=== PATIENT | male | born 1950 | race Hispanic/Latino ===

== ENCOUNTER → 2018-07-01 | Day surgery (SDC) | payer OTHER ==
[2018-06-17 10:07] LABS: BASOPHILS # (AUTO) 0.1 (0.0-0.1); BASOPHILS % 0.8 % (0.0-1.0); EOSINOPHILS # (AUTO) 0.3 (0.0-0.4); EOSINOPHILS % 4.2 % (0.0-6.0); HEMATOCRIT 42.4 % (38.2-49.6); HEMOGLOBIN 14.7 g/dL (14.0-18.0); LYMPHOCYTES # (AUTO) 2.3 (1.0-3.2); MEAN CORPUSCULAR HEMOGLOBIN 31.1 pg (28-32); MEAN CORPUSCULAR HGB CONC 34.7 g/dL (31-35); MEAN CORPUSCULAR VOLUME 89.6 fL (81-99); MONOCYTES # (AUTO) 0.5 (0.2-0.8); MONOCYTES % 8.9 % (4.4-11.3); NEUTROPHILS # (AUTO) 2.8 (2.1-6.9); NEUTROPHILS % 46.8 % (38.7-80.0); PLATELET COUNT 194 x10e3/uL (140-360); RED BLOOD COUNT 4.73 x10e6/uL (4.3-5.7); RED CELL DISTRIBUTION WIDTH 13.6 % (11.7-14.4)
[2018-06-17 10:25] LABS: ALANINE AMINOTRANSFERASE 25 IU/L (0-55); ALBUMIN 4.2 g/dL (3.5-5.0); ALBUMIN/GLOBULIN RATIO 1.3 (0.8-2.0); ALKALINE PHOSPHATASE 61 IU/L (40-150); ANION GAP 14.7 mmol/L (8-16); BLOOD UREA NITROGEN 17 mg/dL (7-26); BUN/CREATININE RATIO 17 (6-25); CARBON DIOXIDE 24 mmol/L (22-29); CHLORIDE 105 mmol/L (98-107); CREATININE, SERUM 1.02 mg/dL (0.72-1.25); EST GLOMERULAR FILTRATION RATE > 60 ML/MIN (60-); GLUCOSE 152 mg/dL (74-118); POTASSIUM 4.7 mmol/L (3.5-5.1); SODIUM 139 mmol/L (136-145)
--- NOTE | 2018-06-17 12:37 | Diagnostic Imaging Report ---
PROCEDURE: Frontal and lateral views of the chest. COMPARISON: None. INDICATIONS: PRE OPERATIVE CHEST X-RAY FOR LAP RANJIT FINDINGS: Lines/tubes: None. Lungs: The lungs are well inflated and clear. There is no evidence of pneumonia or pulmonary edema. Pleura: There is no pleural effusion or pneumothorax. Heart and mediastinum: The cardiomediastinal silhouette is unremarkable. Bones: No acute bony abnormality. IMPRESSION: No acute radiographic abnormality. Dictated by: SONU KILGORE M.D. on 06/17/2018 at 11:29 Electronically approved by: SONU KILGORE M.D. on 06/17/2018 at 11:29
[~2018-07-01] MED LIST: ACETAMINOPHEN 1000 MG/100 ML IV ONE; ACTOS15 MG PO; BUPIVACAINE 0.25%/EPI 30ML SDV INJ ONE; DEXAMETHASONE SOD PHOS INJ 4 MG/ML VIAL ONE; FENTANYL CITRATE/PF 100MCG/2 ML INJ ONE; GLIPIZIDE ER5 MG PO; GLYCOPYRROLATE INJ 1MG/ 5 ML SYR ONE; LIDOCAINE HCL 2% LOCAL INJ 5 ML SDV VIAL INJ ONE; LISINOPRIL10 MG PO; LOVASTATIN40 MG PO; METFORMIN HCL500 MG PO; MIDAZOLAM HCL 2 MG/2 ML VIAL ONE; MORPHINE SULFATE INJ 10 MG/ML ONE; NEOSTIGMINE 5 MG/5ML SYR ONE; OMEPRAZOLE40 MG PO; ONDANSETRON HCL INJ 2 MG/ML VIAL ONE; PROPOFOL IV EMULSION 10 MG/ML 20 ML VIAL ONE; ROCURONIUM BROMIDE 10 MG/ML 5ML VIAL ONE; SEROQUEL25 MG PO; SEVOFLURANE INHAL SOLN 250 ML PEN BTL ONE
--- OUTSIDE RECORDS SUMMARY | 2018-07-01 05:43 | XMS REPORT ---
Author Author [facility] Address Unknown Phone Unavailable Care Team Providers Care Electronic Transaction Implementer Name Role Phone SVITLANA MUNOZ Unavailable Unavailable Problems This patient has no known problems. Allergies, Adverse Reactions, Alerts This patient has no known allergies or adverse reactions. Medications This patient has no known medications. Results Test Description Test Time Test Comments Text Results Atomic Results Result Comments CHEST 2 VIEWS 2018-06-17 11:29:00 [place] [address] Patient Name: THOM ANDRE MR #: [id number] : 1950 Age/Sex: 67/M Req #: [id number] Adm Physician: Ordered by: SVITLANA MUNOZ MD Report #: [id number] Location: OR Room/Bed: Procedure: [id number] DX/CHEST 2 VIEWS Exam Date: 06/17/18 Exam Time: 1000 REPORT STATUS: Signed PROCEDURE: Frontal and lateral views of the chest. COMPARISON: None. INDICATIONS: PRE OPERATIVE CHEST X-RAY FOR LAP RANJIT FINDINGS: Lines/tubes: None. Lungs: The lungs are well inflated and clear. There is no evidence of pneumonia or pulmonary edema. Pleura: There is no pleural effusion or pneumothorax. Heart and mediastinum: The cardiomediastinal silhouette is unremarkable. Bones: No acute bony abnormality. IMPRESSION: No acute radiographic abnormality. Dictated by: SONU KILGORE M.D. on 06/17/2018 at 11:29 Electronically approved by: SONU KILGORE M.D. on 06/17/2018 at 11:29 Dictated By: SONU KILGORE MD [id number] Transcribed By: KT on 06/17/181128 COPY TO: SVITLANA MUNOZ MD
--- NOTE | 2018-07-01 09:13 | Operative Report ---
DATE OF PROCEDURE: July 01, 2018 PREOPERATIVE DIAGNOSIS: Cholelithiasis and chronic cholecystitis. POSTOPERATIVE DIAGNOSIS: Cholelithiasis and chronic cholecystitis. PROCEDURE PERFORMED: Laparoscopic cholecystectomy. ANESTHESIA: General endotracheal. ESTIMATED BLOOD LOSS: Minimal. DRAINS: None. COMPLICATIONS: None. INDICATIONS AND FINDINGS: A 67-year-old diabetic male complains of epigastric pain associated with fatty foods for several months. He was found to have gallstones by ultrasound. No history of jaundice. He had normal liver function tests. INTRAOPERATIVE FINDINGS: Cholelithiasis. Adhesions of omentum to the gallbladder or indicating chronic cholecystitis. There was no ductal dilatation. DESCRIPTION OF PROCEDURE: With the patient lying on the operative table in the supine position and after administration of general anesthesia, he was prepped and draped for laparoscopic cholecystectomy. The procedure was begun by establishing a pneumoperitoneum in the umbilical site after a stab wound was made in that location and the saline drop test was performed. Pneumoperitoneum was insufflated to 15 mm of pressure. Then the 10/11 trocar placed in that location. The patient was rotated to the left and with the head up, and a 10-mm subxiphoid port was placed. Finally, 2 lateral working ports 5 mm each were placed in the right midclavicular line and right anterior line. The gallbladder was retracted cephalad using grasping forceps through the two 5-mm trocars, and the dissection was begun dissecting the omentum from the gallbladder. Then the dissection was carried on high in the neck of the gallbladder until we exposed the cystic duct and identified the junction with the common bile duct. The cystic artery was also identified. Then we transected the cystic duct 3 times distally and once proximally between titanium clips. Then the arterial blood supply to the gallbladder was identified also and transected between titanium clips also. The gallbladder was taken down from the liver bed using sharp dissection with electrocautery. Then the gallbladder was detached and removed through the umbilical port. After we did that, we closed the wounds using 0 Vicryl for the umbilical fascia, 3-0 Vicryl for the subcutaneous tissue in that location, as well as the subxiphoid port. The skin of all the ports was closed with roderick. Then 0.25% Marcaine with epinephrine was given as a local block at the end of the case. The patient tolerated the procedure well, and was taken to the recovery room in stable condition. Job#: [id number] NIYA
[2018-07-01 10:05] VITALS: BP 165/85
== END | disposition home or self-care (01) ==
LOC: EDBD 06-24 07:30 → OR 05:41
PROVIDERS: ATTEND Surgery
DX: K80.10 Calculus of gallbladder with chronic cholecystitis without obstruction (principal); E11.9 Type 2 diabetes mellitus without complications; I10 Essential (primary) hypertension; R00.1 Bradycardia, unspecified; K44.9 Diaphragmatic hernia without obstruction or gangrene; K21.9 Gastro-esophageal reflux disease without esophagitis; Z01.810 Encounter for preprocedural cardiovascular examination; Z01.812 Encounter for preprocedural laboratory examination; Z01.818 Encounter for other preprocedural examination; Z79.84 Long term (current) use of oral hypoglycemic drugs
CPT/HCPCS: 36415 ×2; 47562; 71046; 80053; 82948; 85025; 88304; 93005; J0131; J1100; J2001; J2250; J2270; J2405; J2704; J3490